=== PATIENT | female | born 1950 | race Caucasian/White ===

== ENCOUNTER 2022-04-10 06:47 | Inpatient (IN) ==
[~2022-04-10 06:47] MED LIST: Buffered Lidocaine 1% SYRIN 1 ml INTRADERM ONE; Dexamethasone IV 4 MG/ML VIAL 1 ml VIAL IV SLOW PU ONE; Famotidine IV 10 MG/ML 2 ml VIAL (20 mg) IV ONE; Lactated Ringers 1000 ml BAG 1,000 ML IV SCH
[2022-04-10] MEDS ORDERED: Clindamycin 900 MG/D5W BAG 900 MG/50 ML BAG IVPB ONE (07:16)
[2022-04-10] MEDS ORDERED: Lidocaine 2% PF 5 ML VIAL ONE (07:59)
[2022-04-10] MEDS ORDERED: Propofol 10 MG/ML 20 ML BTL ONE ×3 (07:59→11:09)
[2022-04-10] MEDS ORDERED: Ketamine HCL 50 mg/ml 10 ml VIAL (500 MG) ONE (08:24)
[2022-04-10] MEDS ORDERED: fentaNYL 100 mcg/2 ml 50 MCG/ML VIAL ONE ×2 (08:29→13:00)
[2022-04-10] MEDS ORDERED: Midazolam 2 mg/2 ml VIAL 1 mg/ml 2 ml VIAL (2 mg) ONE ×2 (08:29→09:24)
[2022-04-10] MEDS ORDERED: ROPIVACAINE 5 MG/ML 30 ML BTL (0.5%) ONE ×2 (08:31→08:47)
[2022-04-10] MEDS ORDERED: Sterile Water for Inj 10 ML ONE (09:48)
[2022-04-10] MEDS ORDERED: Phenylephrine 40 mcg/mL 10mL (400mcg) SYRINGE ONE ×2 (09:48→11:41)
[2022-04-10] MEDS ORDERED: Glycopyrrolate IV 0.2 MG/ML 1 ML VIAL ONE (09:51)
[2022-04-10] MEDS ORDERED: Naloxone 0.4 mg VIAL 0.4 mg/ml 1 ml VIAL IV PRN (10:03)
[2022-04-10] MEDS ORDERED: Prochlorperazine 5 mg/ml 2 ml VIAL (10 mg) IV PRN (10:03)
[2022-04-10] MEDS ORDERED: fentaNYL 100 mcg/2 ml 50 MCG/ML VIAL IV PRN (10:03)
[2022-04-10] MEDS ORDERED: Morphine 4 MG/ML VIAL (1 ml) IV PRN (10:03)
[2022-04-10] MEDS ORDERED: Acetaminophen IV 1 GM/100ML 1,000 MG/100 ML BAG IV ONE (10:32)
[2022-04-10] MEDS ORDERED: Ondansetron 4 mg VIAL 2 MG/ML 2 ml VIAL ONE (10:33)
[2022-04-10] MEDS ORDERED: Ondansetron 4 mg VIAL 2 MG/ML 2 ml VIAL IV PRN (12:29)
[2022-04-10] MEDS ORDERED: Magnesium Hydroxide LIQ 30 ML UDC PO PRN (12:29)
[2022-04-10] MEDS ORDERED: Morphine 2 MG/ML SYRINGE IV PRN (12:29)
[2022-04-10] MEDS ORDERED: Ondansetron ODT 4 mg TAB 4 MG TAB PO PRN (12:29)
[2022-04-10] MEDS ORDERED: Lactulose 30 ml UDC PO PRN (12:29)
[2022-04-10] MEDS: Clindamycin 600 MG/D5W BAG 600 MG/50 ML BAG IV SCH (16:26)
[2022-04-10] MEDS: Lactated Ringers 1000 ml BAG 1,000 ML IV SCH (16:28)
[2022-04-10] MEDS: Magnesium Hydroxide LIQ 30 ML UDC PO SCH (21:04)
[2022-04-11] MEDS: Clindamycin 600 MG/D5W BAG 600 MG/50 ML BAG IV SCH ×2 (00:44→08:21)
[2022-04-11] MEDS: Lactated Ringers 1000 ml BAG 1,000 ML IV SCH (02:42)
[2022-04-11 06:04] LABS: Hematocrit 30 % (35-47); Hemoglobin 10.1 g/dL (12.0-16.0); Mean Platelet Volume 6.5 fL (7.4-10.4); Platelet Count 263 10^3/uL (150-450)
[2022-04-11 06:21] LABS: Calcium 8.3 mg/dL (8.6-10.3); Potassium 4.5 mmol/L (3.5-5.0); eGFR CKD-EPI 62.5 (>60)
[2022-04-11] MEDS: Magnesium Hydroxide LIQ 30 ML UDC PO SCH (08:18)
[2022-04-11] MEDS ORDERED: Vitamin THERAPEUTIC TAB PO SCH (09:00)
[2022-04-11 13:16] VITALS: BP 127/57
== END 2022-04-11 15:55 | disposition home or self-care (01) | DRG 302 ==
LOC: AA 06:47 → SSU 14:23
PROVIDERS: ADMIT Orthopaedic Surgery Adult Reconstructive Orthopaedic Surgery; ATTEND Orthopaedic Surgery Adult Reconstructive Orthopaedic Surgery

== ENCOUNTER 2023-07-09 08:45 | Inpatient (IN) ==
[~2023-07-09 08:45] MED LIST changes: -Buffered Lidocaine 1% SYRIN 1 ml INTRADERM ONE; -Dexamethasone IV 4 MG/ML VIAL 1 ml VIAL IV SLOW PU ONE; -Famotidine IV 10 MG/ML 2 ml VIAL (20 mg) IV ONE; -Lactated Ringers 1000 ml BAG 1,000 ML IV SCH; +Naloxone 0.4 mg VIAL 0.4 mg/ml 1 ml VIAL IV PRN; +Ondansetron 4 mg VIAL 2 MG/ML 2 ml VIAL IV PRN
[2023-07-09] MEDS ORDERED: ceFAZolin 2 GM PREMIX 2 GM/50 ML BAG ONE (10:52)
[2023-07-09] MEDS ORDERED: Buffered Lidocaine 1% SYRIN 1 ml ONE (10:52)
[2023-07-09] MEDS ORDERED: Tranexamic Acid 1 GM/100ML BAG 2,000 MG/200 ML BAG IV ONE (10:52)
[2023-07-09] MEDS ORDERED: Midazolam 2 mg/2 ml VIAL 1 mg/ml 2 ml VIAL (2 mg) ONE (11:22)
[2023-07-09] MEDS ORDERED: Lidocaine 2% PF 5 ML VIAL ONE (11:24)
[2023-07-09 11:25] LABS: Rapid COVID-19 Molecular Undetected (Undetected)
[2023-07-09] MEDS ORDERED: ceFAZolin *3* GM in NS PREMIX 0 GM/0 ML BAG IV ONE (11:51)
[2023-07-09] MEDS ORDERED: ceFAZolin 1 GM in Dextrose 1 GM/50 ML BAG ONE (11:55)
[2023-07-09] MEDS ORDERED: ROPIVACAINE 5 MG/ML 30 ML BTL (0.5%) ONE (11:55)
[2023-07-09] MEDS ORDERED: Dexamethasone IV 4 MG/ML VIAL 1 ml VIAL ONE ×2 (12:13→13:56)
[2023-07-09] MEDS ORDERED: Ropivacaine 5 MG/ML 20 ML VIAL 0.5% (100 MG) ONE (12:25)
[2023-07-09] MEDS ORDERED: Lidocaine 1% MPF 5 ML VIAL ONE (12:26)
[2023-07-09] MEDS ORDERED: Propofol 10 MG/ML 20 ML BTL ONE ×2 (12:45→13:57)
[2023-07-09] MEDS ORDERED: Bupivacaine-MPF SPINAL 7.5 MG/ML - 2ML AMP ONE (13:26)
[2023-07-09] MEDS ORDERED: Buffered Lidocaine 1% SYRIN 1 ml INTRADERM ONE (13:49)
[2023-07-09] MEDS ORDERED: Ondansetron 4 mg VIAL 2 MG/ML 2 ml VIAL ONE ×2 (13:56→16:05)
[2023-07-09] MEDS ORDERED: Lactated Ringers 1000 ml BAG 1,000 ML IV SCH (14:00)
[2023-07-09] MEDS ORDERED: Morphine 2 MG/ML SYRINGE IV PRN (16:00)
[2023-07-09] MEDS ORDERED: Ondansetron 4 mg VIAL 2 MG/ML 2 ml VIAL IV PRN (16:00)
[2023-07-09] MEDS ORDERED: Lactulose 30 ml UDC PO PRN (16:00)
[2023-07-09] MEDS ORDERED: Magnesium Hydroxide LIQ 30 ML UDC PO PRN (16:00)
[2023-07-09] MEDS ORDERED: Ondansetron ODT 4 mg TAB 4 MG TAB PO PRN (16:00)
[2023-07-09] MEDS ORDERED: fentaNYL 100 mcg/2 ml 50 MCG/ML VIAL ONE (16:05)
[2023-07-09] MEDS ORDERED: HYDROmorphone 1 MG/1 ML SYRINGE ONE (16:05)
[2023-07-09] MEDS: HYDROmorphone 1 MG/1 ML SYRINGE IV PRN ×3 (16:08→17:02)
[2023-07-09] MEDS: fentaNYL 100 mcg/2 ml 50 MCG/ML VIAL IV PRN ×4 (16:09→16:31)
[2023-07-09] MEDS: Lactated Ringers 1000 ml BAG 1,000 ML IV SCH (18:21)
[2023-07-09] MEDS: Magnesium Hydroxide LIQ 30 ML UDC PO SCH (20:25)
[2023-07-09] MEDS: ceFAZolin 1 GM ADVAN 1 GM in NS 0.9% 50 ML 50 ML IVPB SCH (22:38)
[2023-07-10] MEDS: Lactated Ringers 1000 ml BAG 1,000 ML IV SCH (04:59)
[2023-07-10] MEDS: ceFAZolin 1 GM ADVAN 1 GM in NS 0.9% 50 ML 50 ML IVPB SCH ×2 (06:14→14:31)
[2023-07-10 06:15] LABS: Platelet Count 383 10^3/uL (150-450)
[2023-07-10 06:27] LABS: Hematocrit 31.2 % (35-45); Hemoglobin 10.5 g/dL (11.5-14.3); Mean Platelet Volume 6.4 fL (7.5-11.2)
[2023-07-10 06:39] LABS: Calcium 8.9 mg/dL (8.6-10.3); Creatinine, Serum 0.91 mg/dL (0.51-0.95); eGFR CKD-EPI 66.2 (>60)
[2023-07-10] MEDS: Vitamin THERAPEUTIC TAB PO SCH (08:25)
[2023-07-10] MEDS: Magnesium Hydroxide LIQ 30 ML UDC PO SCH ×2 (09:09→20:56)
[2023-07-11 07:18] LABS: Platelet Count 341 10^3/uL (150-450)
[2023-07-11 07:28] LABS: Hematocrit 27.9 % (35-45); Hemoglobin 9.5 g/dL (11.5-14.3); Mean Platelet Volume 6.4 fL (7.5-11.2)
[2023-07-11 07:36] LABS: Calcium 8.6 mg/dL (8.6-10.3); Creatinine, Serum 0.91 mg/dL (0.51-0.95); Magnesium 1.8 mg/dL (1.9-2.7); Potassium 3.6 mmol/L (3.5-5.0); eGFR CKD-EPI 66.2 (>60)
[2023-07-11] MEDS: Magnesium Hydroxide LIQ 30 ML UDC PO SCH (10:50)
[2023-07-11 10:51] VITALS: BP 146/71
[2023-07-11] MEDS: Vitamin THERAPEUTIC TAB PO SCH (10:51)
== END 2023-07-11 13:45 | disposition home or self-care (01) | DRG 302 ==
LOC: AA 09:47 → SSU 17:50
PROVIDERS: ADMIT Orthopaedic Surgery Adult Reconstructive Orthopaedic Surgery; ATTEND Orthopaedic Surgery Adult Reconstructive Orthopaedic Surgery